=== PATIENT | male | born 1990 | race Caucasian/White ===

== ENCOUNTER 2017-08-22 09:05 | Emergency (ER) | payer OTHER, SELFPAY ==
[2017-08-22] VITALS (16 sets, daily range): BP systolic 136–175; BP diastolic 87–117; PULSE 56–117; RESP 15–24; TEMP 36.8; O2SAT 96–100; BMI 28.8
--- NOTE | 2017-08-22 09:19 | DI.RAD.S_ITS ---
PROCEDURE: XR SHOULDER LT MIN 2V INDICATIONS: Possible dislocation left shoulder TECHNIQUE: 2 views of the shoulder were acquired. COMPARISON: None. FINDINGS: Bones: Anterior dislocation of the left humerus noted. No suspicious bony lesions. Visualized ribs appear intact. Soft tissues: No suspicious soft tissue calcifications. IMPRESSION: Left anterior shoulder dislocation. Dictated by: Luma Chao MD, PhD on 08/22/2017 at 9:33 Approved by: Luma Chao MD, PhD on 08/22/2017 at 9:34
--- NOTE | 2017-08-22 09:28 | ED.UPPEXIN ---
HPI - Extremity Injury (Upper) General Chief Complaint: Extremity Injury, Upper Stated Complaint: lt shoulder dislocated Time Seen by Provider: 08/22/17 09:19 Source: patient Mode of arrival: ambulatory Limitations: no limitations History of Present Illness HPI narrative: 27-year-old male here for evaluation of possible dislocation of his left shoulder. Patient states that he has dislocated his shoulder in the past however that was with skiing. He states that today he was at work and was lifting himself up on a table and felt his left shoulder dislocate. Has had pain since then. No other injuries from the event Related Data Home Medications Medication Instructions Recorded Confirmed No Known Home Medications 08/22/17 08/22/17 Allergies Allergy/AdvReac Type Severity Reaction Status Date / Time No Known Drug Allergies Allergy Verified 08/22/17 09:35 Review of Systems Constitutional Denies chills, Denies fever(s), Denies lethargy and Denies weakness Cardiovascular Denies chest pain and Denies dyspnea Respiratory Denies cough and Denies dyspnea Gastrointestinal Gastrointestinal: Denies constipation, Denies diarrhea, Denies nausea and Denies vomiting Genitourinary Denies dysuria Musculoskeletal Comments: Left shoulder pain Integumentary/Breasts Denies lesions and Denies rash Neurologic Denies weakness Comments: No numbness and tingling left upper extremity Hematologic/Lymphatic Denies easy bruising [facility] Social History Smoking Status: Never smoker Exam Initial Vital Signs Initial Vital Signs: Vital Signs Temperature 98.2 F 08/22/17 09:19 Pulse Rate 68 08/22/17 09:19 Respiratory Rate 20 08/22/17 09:19 Blood Pressure 159/110 H 08/22/17 09:19 Pulse Oximetry 96 08/22/17 09:19 Const General: cooperative and well developed Nutritional Appearance: well nourished Orientation: alert, awake, oriented x3 and not confused Cardio Pulses: radial pulses present on the left Skin General: no rashes or lesions noted, No jaundice and No petechiae Neuro Other: Sensation intact to light touch left upper extremity Sensation intact over lateral deltoid Extrem General: capillary refill normal Other: Patient with obvious deformity and pain over the left shoulder Procedures Orthopedic Joint Reduction Joint #1: Time Out Performed: Yes Side: left Joint Reduction Location: shoulder Analgesia: procedural sedation Shoulder Technique Used (if applicable): Farazch Post-reduction neuro exam: intact Post-reduction vascular: intact Post Reduction X-Ray Obtained: Yes Post Reduction X-Ray Results: reduced Splint Applied: Yes (Shoulder sling) Patient Tolerated Procedure: Well and No complications Procedural Sedation Indication: fracture/dislocation reduction Presedation Evaluation: Left shoulder dislocation ASA Class: I Mallampati Airway Classification: Class I Preparation: manager cardiac applied, pulse oximeter, capnometry used, supplemental O2 applied and suction/airway equipment at bedside Ketamine: IV Ketamine dose (mg): 200 ED Sedation Level: Moderate (Concious) Patient Tolerated Procedure: Well and No complications Interventions: Airway repositioned Course Orders Ordered: ED Orders 08/22/17 09:19 XR shoulder LT min 2V Stat 08/22/17 10:35 XR shoulder LT min 2V Stat Discontinued Medications Hydromorphone HCl (Dilaudid) 1 mg IV NOW ONE Stop: 08/22/17 09:33 Last Admin: 08/22/17 09:42 Dose: 1 mg Ketamine HCl (Ketalar) 200 mg IV NOW ONE Stop: 08/22/17 10:33 Last Admin: 08/22/17 10:32 Dose: 200 mg Vital Signs - 8 hr 08/22/17 09:19 08/22/17 10:10 08/22/17 10:17 Temperature 98.2 F Pulse Rate 68 56 L 62 Respiratory Rate 20 20 20 Blood Pressure 159/110 H Blood Pressure [Right Arm] 136/87 H Pulse Oximetry 96 98 08/22/17 10:20 08/22/17 10:29 08/22/17 10:35 Temperature Pulse Rate 61 65 63 Respiratory Rate 20 15 22 Blood Pressure Blood Pressure [Right Arm] 148/96 H Pulse Oximetry 99 08/22/17 10:38 08/22/17 10:42 08/22/17 10:44 Temperature Pulse Rate 117 H 106 H 99 H Respiratory Rate 24 23 20 Blood Pressure Blood Pressure [Right Arm] 175/117 H 163/98 H 158/91 H Pulse Oximetry 97 98 100 08/22/17 10:50 08/22/17 10:52 08/22/17 10:55 Temperature Pulse Rate 98 H 86 100 H Respiratory Rate 17 15 18 Blood Pressure Blood Pressure [Right Arm] 159/97 H Pulse Oximetry 100 08/22/17 11:03 08/22/17 11:17 08/22/17 11:31 Temperature Pulse Rate 95 H 76 69 Respiratory Rate 18 17 15 Blood Pressure Blood Pressure [Right Arm] 160/109 H 147/93 H 147/93 H Pulse Oximetry 99 MDM - Extremity Injury (Upper) Imaging Data Left shoulder x-ray: Radiologist's impression: PROCEDURE: XR SHOULDER LT MIN 2V INDICATIONS: Possible dislocation left shoulder TECHNIQUE: 2 views of the shoulder were acquired. COMPARISON: None. FINDINGS: Bones: Anterior dislocation of the left humerus noted. No suspicious bony lesions. Visualized ribs appear intact. Soft tissues: No suspicious soft tissue calcifications. IMPRESSION: Left anterior shoulder dislocation. Dictated by: Luma Chao MD, PhD on 08/22/2017 at 9:33 Post reduction shoulder: Radiologist's impression: PROCEDURE: XR SHOULDER LT MIN 2V INDICATIONS: POST REDUCTION LEFT SHOULDER TECHNIQUE: 2 views of the shoulder were acquired. COMPARISON: [facility], , XR SHOULDER LT MIN 2V, 08/22/2017, 8:58. FINDINGS: Bones: The humeral head is now anatomically aligned with respect to the glenoid. No displaced fractures are identified. Soft tissues: No suspicious soft tissue calcifications. IMPRESSION: Interval anatomic alignment of the humeral head with respect to the glenoid. No displaced fractures are evident. Dictated by: Rashid Rowe M.D. on 08/22/2017 at 10:45 MDM Narrative Medical decision making narrative: Patient sedated with ketamine and shoulder reduced without problems. No signs of fracture. Patient recovered here in the emergency department. Was placed in a sling. Patient was given follow-up with the orthopedic group here in [facility]. He was given return precautions. He expressed understanding and agreement with plan. Discharge Plan Departure Patient Disposition: Home, Self-Care Clinical Impression: Anterior dislocation of left shoulder Instructions: Shoulder Dislocation Activity Restrictions/Additional Instructions: Recommend that you keep the sling on except for showering. You can call the [facility] group at [phone]. For a follow-up. Also recommend that you may contact with the primary care doctor. Return to the emergency department for any new or worsening symptoms Prescriptions: No Action No Known Home Medications RF: 0
[2017-08-22] MEDS: HYDROMORPHONE 0.5 MG INJ 1 MG IV (09:42)
[2017-08-22] MEDS: KETAMINE 500 MG/10 ML INJ 200 MG IV (10:32)
--- NOTE | 2017-08-22 10:34 | PC.NURSE ---
procedure well, smooth close reduction left shoulder, +dcms intact.
--- NOTE | 2017-08-22 10:35 | DI.RAD.S_ITS ---
PROCEDURE: XR SHOULDER LT MIN 2V INDICATIONS: POST REDUCTION LEFT SHOULDER TECHNIQUE: 2 views of the shoulder were acquired. COMPARISON: , CR, XR SHOULDER LT MIN 2V, 08/22/2017, 8:58. FINDINGS: Bones: The humeral head is now anatomically aligned with respect to the glenoid. No displaced fractures are identified. Soft tissues: No suspicious soft tissue calcifications. IMPRESSION: Interval anatomic alignment of the humeral head with respect to the glenoid. No displaced fractures are evident. Dictated by: Rashid Rowe M.D. on 08/22/2017 at 10:45 Approved by: Rashid Rowe M.D. on 08/22/2017 at 10:45
--- NOTE | 2017-08-22 10:51 | PC.NURSE ---
FLORINA [phone]
--- NOTE | 2017-08-22 10:55 | PC.NURSE ---
pt able to sit up. smiling
--- NOTE | 2017-08-22 11:03 | PC.NURSE ---
pt emotional, crying with tears, talkative
--- NOTE | 2017-08-22 12:10 | PC.NURSE ---
increase in alertness,oriented x4, maew, skin warm dry pink. left shoulder improved, distal cms intact. remain with sling and ice pack, verbal understanding, instructions. pt cooperative and thankful.and also apologitic
== END 2017-08-22 12:22 | disposition home or self-care (01) ==
PROVIDERS: Emergency Provider Emergency Medicine
DX: S43.015A Anterior dislocation of left humerus, initial encounter (principal); T73.3XXA Exhaustion due to excessive exertion, initial encounter
CPT/HCPCS: 73030; 94770; 96374; 99152; 99283; 99285; 99291; 99292; J1170